=== PATIENT | female | born 1985 | race Caucasian/White ===

== ENCOUNTER 2018-04-01 06:32 | Emergency (ER) | payer OTHER ==
[~2018-04-01] VITALS: Ht 180.3 cm; Wt 58.1 kg
[~2018-04-01 06:32] MED LIST: ACETAMINOP160 MG/5 M PO; ACETAMINOPHEN-1 EAC1 PO; ALBUTEROL2.5 MG/31 INH; AMOXICILLI250 MG/51 PO; AMOXICILLI400 MG/5 M PO; AMOXICILLIN 50500 MG PO; AUGMENTIN600 MG/5 M PO; BIRTH CONTROL; CIPROFLOXACIN500 M1 PO; FLEXERIL PO; GILDESS; GILDESS1 EAC1; HYCET 7.5 MG-3473 ML PO; HYDROCODONE-AP1 EAC6 PO; IBUPROFEN 400400 M2 PO; IBUPROFEN 800800 M1 PO; KEFLEX250 MG/5 M PO; MEDROLDOSEPACK PO; NAPROSYN500 MG PO; NOHOMEMEDICATIONS; NORCO 5-325 TA1 EAC1 PO; NORCO 5-325 TA1 EACH PO; PENICILLIN V P500 MG PO; PENICILLIN VK250 MG PO; PENICILLIN250 MG/51 PO; PHENERGAN 25 MG25 MG PO; ROBAXIN500 MG PO; TESSALON PERLE100 MG PO; TRAMADOL 50 MG50 MG PO; ULTRAM 50MG TAB50 MG PO; ZOFRAN 4 MG ORAL4 M1 DIS
[2018-04-01 06:39] VITALS: BP 123/77
[2018-04-01] MEDS ORDERED: NORCO 5-325 TA1 EACH PO (06:51)
[2018-04-01] MEDS ORDERED: PENICILLIN VK500 M1 PO (06:51)
== END 2018-04-01 07:01 | disposition home or self-care (01) ==
LOC: ER 06:32
DX: S02.5XXA Fracture of tooth (traumatic), initial encounter for closed fracture (principal); K02.9 Dental caries, unspecified; Z88.5 Allergy status to narcotic agent; Z88.8 Allergy status to other drugs, medicaments and biological substances; Z88.6 Allergy status to analgesic agent; X58.XXXA Exposure to other specified factors, initial encounter; Y92.89 Other specified places as the place of occurrence of the external cause; Y93.89 Activity, other specified; Y99.8 Other external cause status

== ENCOUNTER 2018-04-25 07:06 | Emergency (ER) | payer OTHER ==
[~2018-04-25] VITALS: Ht 180.3 cm; Wt 58.1 kg
[~2018-04-25 07:06] MED LIST changes: +PENICILLIN VK500 M1 PO
[2018-04-25] MEDS ORDERED: PENICILLIN V P500 MG PO (07:21)
[2018-04-25 07:36] VITALS: BP 119/58
== END 2018-04-25 07:25 | disposition home or self-care (01) ==
LOC: ER 07:06
DX: K08.89 Other specified disorders of teeth and supporting structures (principal); Z88.8 Allergy status to other drugs, medicaments and biological substances; Z88.6 Allergy status to analgesic agent; Z88.5 Allergy status to narcotic agent

== ENCOUNTER 2018-12-24 10:15 | Emergency (ER) | payer OTHER ==
[~2018-12-24] VITALS: Ht 180.3 cm; Wt 54.4 kg
[~2018-12-24 10:15] MED LIST changes: +AUGMENTIN 875-1 EACH PO; +TORADOL 10 MG T10 MG PO
[2018-12-24] MEDS ORDERED: FLONASE 0.05%50 MCG NASAL (10:59)
[2018-12-24] MEDS ORDERED: AUGMENTIN 875-1 EACH PO (10:59)
[2018-12-24 12:43] VITALS: BP 121/70
[2018-12-25] MEDS ORDERED: BIRTH CONTROL (16:36)
[2018-12-25] MEDS ORDERED: AMOXICILLIN875 MG PO (16:54)
== END 2018-12-24 11:08 | disposition home or self-care (01) ==
LOC: ER 10:15
DX: H65.03 Acute serous otitis media, bilateral (principal); F17.200 Nicotine dependence, unspecified, uncomplicated; Z88.5 Allergy status to narcotic agent; Z88.6 Allergy status to analgesic agent; Z88.8 Allergy status to other drugs, medicaments and biological substances